=== PATIENT | female | born 1940 | race Caucasian/White ===

== ENCOUNTER 2017-09-11 08:27 | Emergency (ER) | payer MEDICARE, OTHER ==
[2017-09-11 08:53] LABS: ADD MAN DIFF? NO
[2017-09-11 08:54] LABS: WHITE BLOOD COUNT 4.8 10^3/ul (4.8-10.8)
[2017-09-11 08:54] LABS: BASOPHILS % 0.4 % (0.0-2.0); EOSINOPHILS # 0.2 10^3/ul (0.0-0.5); HEMATOCRIT 40.5 % (37.0-47.0); HEMOGLOBIN 13.6 g/dl (12.0-16.0); LYMPHOCYTES # 1.9 10^3/ul (0.8-2.9); LYMPHOCYTES % 39.1 % (15.0-51.0); MEAN CORPUSCULAR HEMOGLOBIN 29.2 pg (29.0-33.0); MEAN CORPUSCULAR HGB CONC 33.6 g/dl (32.0-37.0); MEAN CORPUSCULAR VOLUME 86.9 fl (82.0-101.0); MONOCYTE # 0.4 10^3/ul (0.3-0.9); NEUTROPHIL # 2.3 10^3/ul (1.6-7.5); NEUTROPHILS % 47.5 % (39.0-77.0); PLATELET COUNT 181 10^3/UL (140-415); RED BLOOD COUNT 4.66 10^6/ul (4.20-5.40); RED CELL DISTRIBUTION WIDTH 12.8 % (11.5-14.5)
[2017-09-11 08:58] LABS: ADD UMIC NO; UR ASCORBIC ACID NEGATIVE (NEGATIVE); UR BILIRUBIN (Dip) NEGATIVE (NEGATIVE); UR BLOOD (Dip) NEGATIVE (NEGATIVE); UR CLARITY CLEAR (CLEAR); UR COLOR YELLOW (YELLOW); UR GLUCOSE (Dip) NEGATIVE (NEGATIVE); UR KETONES (Dip) NEGATIVE (NEGATIVE); UR LEUKOCYTE ESTERASE (Dip) NEGATIVE Leu/ul (NEGATIVE); UR NITRITE (Dip) NEGATIVE (NEGATIVE); UR SPECIFIC GRAVITY (Dip) 1.012 (1.003-1.030); UR TOTAL PROTEIN (Dip) NEGATIVE (NEGATIVE); UR UROBILINOGEN (Dip) NEGATIVE (NEGATIVE)
[2017-09-11] MEDS: SOD CHLORIDE 0.9% 1,000 ML IV (09:01)
[2017-09-11] MEDS: ALBUTEROL 0.083% (NEB) 2.5 MG/3 ML AMP NEB (09:25)
[2017-09-11 09:35] LABS: ANION GAP 14 (8-16); BLOOD UREA NITROGEN 17 mg/dl (7-20); CALCIUM 8.9 mg/dl (8.4-10.2); CARBON DIOXIDE 27 mmol/L (21-31); CHLORIDE 102 mmol/L (97-110); CREATININE 0.71 mg/dl (0.44-1.00); GLUCOSE 141 mg/dl (70-220); POTASSIUM 3.9 mmol/L (3.5-5.1); SODIUM 139 mmol/L (135-144)
== END 2017-09-11 10:17 | disposition home or self-care (01) ==
LOC: E/R 08:27
DX: J06.9 Acute upper respiratory infection, unspecified (principal); R10.32 Left lower quadrant pain; I10 Essential (primary) hypertension; Z79.82 Long term (current) use of aspirin
CPT/HCPCS: 36415; 71045; 74176; 80048; 81003; 85025; 87086; 93005; 94664; 99285-25